=== PATIENT | female | born 1950 | race Caucasian/White ===

== ENCOUNTER 2017-04-15 21:28 | Emergency (ER) | payer MEDICARE, BC ==
[~2017-04-15] VITALS: Ht 157.5 cm; Wt 64.8 kg
[~2017-04-15 21:28] MED LIST: SERT50 PO; SULF1TAB47 PO
[2017-04-15 21:33] VITALS: BP 139/63; PULSE 94; RESP 18; TEMP 98.9; O2SAT 94
[2017-04-15] MEDS ORDERED: AZIT250T3 PO (21:45)
[2017-04-15] MEDS ORDERED: RESP: ALBUTEROL 2.5 MG/IPRATROPIUM 0.5 MG NEB (SCH) INH ONE (21:45)
[2017-04-15] MEDS ORDERED: ALBUAER3 INH (21:45)
[2017-04-15] MEDS ORDERED: predniSONE 20 MG TAB PO ONE (21:45)
[2017-04-15] MEDS ORDERED: AZITHROMYCIN 250 MG TAB PO ONE (21:45)
[2017-04-15] MEDS ORDERED: PRED20 PO (21:45)
--- NOTE | 2017-04-15 21:49 | PD ---
HPI Chief Complaint: Cold / Flu Symptoms Time Seen by Provider: 21:44 Travel History International Travel<30 days: No Contact w/Intl Traveler<30days: No Traveled to known affect area: No History of Present Illness HPI 66-year-old female presents for evaluation. For the past 4 days she has had cough, congestion. The cough is productive with clear sputum. She endorses a rattling sensation in her lungs. She reports a history of tobacco use. Denies any known history of COPD or asthma. Denies any fevers or chills. She reports that she had a sore throat but that is resolved. She's been using over-the- counter Mucinex with minimal relief. Denies sick contacts, recent travel. Her primary care physician is Dr. Navarrete. No other complaints at this time. [facility] Past Medical History Menopausal: Yes Social History Alcohol Use: No Tobacco Use: Yes (1/2 PACK DAILY) Allergies-Medications (Allergen,Severity, Reaction): Coded Allergies: penicillin G (Unverified Allergy, Mild, 04/15/17) Reported Meds & Prescriptions Reported Meds & Active Scripts Active Proair Hfa 8.5 GM Inh (Albuterol Sulfate) 90 Mcg/Act Aer 2 Puff INH Q4-6H PRN 108 mcg/actuation Prednisone 20 Mg Tab 20 Mg PO BID 5 Days Azithromycin 250 Mg Tab 250 Mg PO DAILY 4 Days Bactrim Ds (Trimethoprim/Sulfamethoxazole) Tab 1 Tab PO BID Reported Zoloft (Sertraline HCl) 50 Mg Tab 50 Mg PO DAILY Review of Systems Except as stated in HPI: all other systems reviewed are Neg Physical Exam Narrative GENERAL: Well-nourished female in no acute distress SKIN: Warm and dry. HEAD: Atraumatic. Normocephalic. EYES: Pupils equal and round. No scleral icterus. No injection or drainage. ENT: No nasal bleeding or discharge. Mucous membranes pink and moist. NECK: Trachea midline. No JVD. CARDIOVASCULAR: Regular rate and rhythm. No murmur appreciated. RESPIRATORY: No accessory muscle use. There is mild end expiratory wheezing bilaterally. Coarse breath sounds noted. GASTROINTESTINAL: Abdomen soft, non-tender, nondistended. Hepatic and splenic margins not palpable. Data Data Last Documented VS Vital Signs Date Time Temp Pulse Resp B/P (MAP) Pulse Ox O2 Delivery O2 Flow Rate FiO2 04/15/17 21:33 98.9 94 18 139/63 (88) 94 Orders Orders Albuterol-Ipratropium Neb (Duoneb Neb) (04/15/17 21:45) Azithromycin (Zithromax) (04/15/17 21:45) Prednisone (Deltasone) (04/15/17 21:45) MDM Medical Decision Making Medical Screen Exam Complete: Yes Emergency Medical Condition: Yes Medical Record Reviewed: Yes Differential Diagnosis Bronchitis, pneumonia, reactive airway disease, COPD Narrative Course 66-year-old female smoker presents with 4 days of cough, congestion. On examination she has mild and expiratory wheezing and coarse breath sounds bilaterally. The plan at this time is to treat the patient with DuoNeb therapy , prednisone and discharge her with prescriptions for azithromycin, prednisone and albuterol inhaler. Recommended tobacco cessation. She is stable for discharge. Diagnosis Primary Impression: Bronchitis Additional Instructions: Medication as prescribed. Avoid tobacco products. Follow-up with primary care physician as needed. Return for any emergent medical conditions. Med/Other Pt SpecificInfo: Prescription(s) given Scripts Albuterol 8.5 GM Inh (Proair Hfa 8.5 GM Inh) 90 Mcg/Act Aer 2 PUFF INH Q4-6H Y for SHORTNESS OF BREATH, #1 INHALER 0 Refills 108 mcg/actuation Prov: Hailee Sorto DO 04/15/17 Prednisone (Prednisone) 20 Mg Tab 20 MG PO BID for 5 Days, #10 TAB 0 Refills Prov: Hailee Sorto DO 04/15/17 Azithromycin (Azithromycin) 250 Mg Tab 250 MG PO DAILY for Infection for 4 Days, #4 TAB 0 Refills Prov: Hailee Sorto DO 04/15/17 Disposition: 01 DISCHARGE HOME Condition: Stable Alvaro Henley Apr 15, 2017 21:48
[2017-04-15] MEDS ORDERED: ZOLO50TA PO (21:53)
== END 2017-04-15 22:32 | disposition home or self-care (01) ==
LOC: PHEFT 21:28
DX: J40 Bronchitis, not specified as acute or chronic (principal)
CPT/HCPCS: 94664; 99284; J7512